=== PATIENT | female | born 1990 | race African-American/Black ===

== ENCOUNTER 2016-05-11 20:50 | Emergency (ER) | payer OTHER ==
[~2016-05-11] VITALS: Ht 157.5 cm; Wt 76.7 kg
[2016-05-11 20:50] VITALS: BP 126/74
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
[2016-05-11] MEDS ORDERED: IBUPROFEN 800 MG TABLET. PO ONE (21:45)
[2016-05-11] MEDS ORDERED: CYCLOBENZAPRINE 10 MG TABLET. PO ONE (21:45)
[2016-05-11 21:53] LABS: NEG OBC UR NEG; POS OBC UR POS
[2016-05-11] MEDS ORDERED: CYCL10TA2 PO (22:10)
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
== END 2016-05-11 22:25 | disposition home or self-care (01) ==
LOC: ER 20:50
DX: M54.9 Dorsalgia, unspecified (principal); M25.551 Pain in right hip; V89.2XXA Person injured in unspecified motor-vehicle accident, traffic, initial encounter; Y92.413 State road as the place of occurrence of the external cause; Y93.89 Activity, other specified; Y99.8 Other external cause status
CPT/HCPCS: 72072; 72100; 73502; 81025; 99285